=== PATIENT | female | born 1990 | race Caucasian/White ===

== ENCOUNTER 2019-01-03 07:50 | Outpatient (REF) | payer MEDICAID, SELFPAY ==
[2019-01-03 21:25] LABS: Abs Immature Grans 0.02 k/cumm (0.0-0.09); Absolute Basophil Count 0.04 k/cumm (0.0-0.2); Absolute Eosinophil Count 0.52 k/cumm (0.0-0.7); Absolute Lymphocyte Count 3.51 k/cumm (1.2-3.4); Absolute Monocyte Count 0.77 k/cumm (0.11-0.7); Absolute Neutrophil Count 4.81 k/cumm (1.2-6.7); Basophils % 0.4; Eosinophils % 5.4; HCT 39.7 % (36.0-46.0); HGB 13.3 g/dL (12.0-15.5); Immature Grans % 0.2; Lymphocytes % 36.3; Mean Corp. HGB Concentration 33.5 g/dL (32.0-36.0); Mean Corpuscular Hemoglobin 30.9 pg (27.0-33.0); Mean Corpuscular Volume 92.1 fL (80-95); Mean Platelet Volume 12.4 fL (8.0-11.0); Neutrophils % 49.7; Platelet Count 172 x1000/uL (130-400); RBC 4.31 m/cumm (4.00-5.20); RBC Distribution Width 12.1 % (11.7-14.6); White Blood Cell Count 9.67 k/cumm (4.4-10.8)
[2019-01-03 21:42] LABS: ALT 40 U/L (12-78); AST 23 U/L (15-37); Albumin 3.3 g/dL (3.4-5.0); Alkaline Phosphatase 64 U/L (46-116); Anion Gap 11.4 mmol/L (3-11); BUN 9 mg/dL (7-18); Bilirubin, Total 0.1 mg/dL (0.2-1.0); CO2 23.6 mmol/L (21.0-32.0); Calcium 8.3 mg/dL (8.5-10.1); Chloride 106 mmol/L (98-107); Cholesterol 150 mg/dL (50-200); Glucose 102 mg/dL (70-100); HDL Cholesterol 27 mg/dL (40-60); Potassium 3.9 mmol/L (3.5-5.1); Sodium 141 mmol/L (136-145); TSH (W/Ref FT4) 3.34 uIU/mL (0.358-3.74); Total Protein 6.4 g/dL (6.4-8.2); Triglyceride 409 mg/dL (30-150)
[2019-01-03 22:00] LABS: LDL CHOLESTEROL 75 mg/dL (<100)
== END 2019-01-03 08:10 ==
LOC: NCHCN 07:50
PROVIDERS: Visit Provider Family Medicine
DX: Z00.00 Encounter for general adult medical examination without abnormal findings (principal); J01.90 Acute sinusitis, unspecified; M06.9 Rheumatoid arthritis, unspecified; L40.9 Psoriasis, unspecified
CPT/HCPCS: 80053; 80061; 83721; 84443; 85025

== ENCOUNTER 2019-12-25 17:38 | Outpatient (REF) | payer SELFPAY ==
[2019-12-28 07:29] LABS: COVID-19 RT-PCR Result NEGATIVE (Negative)
== END 2019-12-25 17:58 ==
LOC: NCHCN 17:38
PROVIDERS: Visit Provider Nurse Practitioner Family
DX: J06.9 Acute upper respiratory infection, unspecified (principal); Z03.818 Encounter for observation for suspected exposure to other biological agents ruled out
CPT/HCPCS: U0003